=== PATIENT | female | born 1985 | race Caucasian/White ===

== ENCOUNTER 2016-08-06 03:50 | Inpatient (IN) | payer MEDICAID ==
[2016-08-06 04:29] LABS: BILIRUBIN,URINE NEGATIVE (NEGATIVE); GLUCOSE, URINE NEGATIVE (NEGATIVE); KETONES,URINE NEGATIVE (NEGATIVE); LEUKOCYTE ESTERASE,URINE TRACE (NEGATIVE); NITRITE,URINE NEGATIVE (NEGATIVE); PROTEIN,URINE 30 mg/dL (NEGATIVE); URINE SPECIFIC GRAVITY 1.002; UROBILINOGEN,URINE NEGATIVE mg/dL (<2.0)
[2016-08-06 04:31] LABS: APPEARANCE,URINE CLEAR
[2016-08-06 04:39] LABS: ABSOLUTE EOSINOPHILS # (AUTO) 0.1 10^3/uL (0.0-0.6); ABSOLUTE LYMPHOCYTES (AUTO) 2.2 10^3/uL (0.5-4.7); ABSOLUTE MONOCYTES (AUTO) 0.6 10^3/uL (0.1-1.4); ABSOLUTE NEUT (AUTO) 7.8 10^3/uL (1.7-8.2); BASOPHILS % (AUTO) 0.2 % (0-2); HEMATOCRIT 34.5 % (36.0-47.0); HGB HCT DIFFERENCE 1.5; LYMPHOCYTES % (AUTO) 20.1 % (13-45); MEAN CORPUSCULAR HEMOGLOBIN 33.4 pg (27.0-33.4); MEAN CORPUSCULAR HGB CONC 34.7 g/dL (32.0-36.0); MEAN CORPUSCULAR VOLUME 96 fl (80-97); MONOCYTES % (AUTO) 5.5 % (3-13); RED BLOOD COUNT 3.59 10^6/uL (3.72-5.28); RED CELL DISTRIBUTION WIDTH 12.6 % (11.5-14.0); SEGMENTED NEUTROPHILS % (AUTO) 73.2 % (42-78); WHITE BLOOD COUNT 10.7 10^3/uL (4.0-10.5)
[2016-08-06 04:44] LABS: URINE BARBITURATES SCREEN NEGATIVE; URINE METHADONE SCREEN NEGATIVE; URINE OPIATES LOW NEGATIVE; URINE PHENCYCLIDINE SCREEN NEGATIVE
[2016-08-06] MEDS ORDERED: PENICILLIN G POTASSIUM 5,000,000 UNIT in DEXTROSE 5%-WATER 100 ML IV ONE (05:12)
[2016-08-06] MEDS ORDERED: RINGERS SOLUTION,LACTATED 1,000 ML IV PRN ×2 (05:12→09:34)
[2016-08-06] MEDS ORDERED: PENICILLIN G-K 5 MILLION UNIT VIAL ONE (05:13)
[2016-08-06 05:41] LABS: FIBRINOGEN 402 mg/dL (209-497); PARTIAL THROMBOPLASTIN TIME 26.9 SEC (23.5-35.8); PROTHROMBIN TIME 12.6 SEC (11.4-15.4)
[2016-08-06 05:43] LABS: ADD HIVPANEL? NO; HIV (1 AND 2) ANTIBODY NEGATIVE (NEGATIVE)
[2016-08-06 05:58] LABS: CHLAM PCR NOT DETECTED (NOT DETECT)
[2016-08-06] MEDS ORDERED: CEFAZOLIN 2 GM/D5W RTU 2 GM/50 ML RTUPB IV ONE (06:12)
[2016-08-06] MEDS ORDERED: CITRIC ACID/SODIUM CITRATE ORAL SOLN 15 ML UDCUP ONE (06:12)
[2016-08-06] MEDS ORDERED: OXYTOCIN 10 UNIT/ML VIAL ONE (06:27)
[2016-08-06] MEDS ORDERED: PROPOFOL INJ 200 MG/20 ML VIAL IV ONE (06:27)
[2016-08-06] MEDS ORDERED: MIDAZOLAM 2 MG/2 ML INJ ONE (06:28)
[2016-08-06] MEDS ORDERED: FENTANYL CITRATE INJ/PF 100 MCG/2 ML AMPUL ONE ×2 (06:28→08:58)
[2016-08-06] MEDS ORDERED: EPHEDRINE SULFATE INJ 50 MG/1 ML AMPULE ONE (06:28)
[2016-08-06] MEDS ORDERED: ACETAMINOPHEN 100 ML IV ONE ×2 (07:36→10:00)
[2016-08-06] MEDS ORDERED: OXYTOCIN/NORMAL SALINE 20 UNIT/1,000 ML RTUINJ ONE ×2 (07:36→18:10)
[2016-08-06 07:46] LABS: ARTERIAL BLOOD BASE EXCESS -2.7 mmol/L; ARTERIAL BLOOD O2 SATURATION 29.5 % (94-98)
--- NOTE | 2016-08-06 08:00 | L&D Flow Sheet ---
LD Flowsheet Datetime Report Generated by CPN: 08/06/2016 08:00 Datetime: 08/06/2016 07:57 Vital Signs NBP Sys/Olinda/Mean (mmHg): 99 (QS system process) : 51 (QS system process) : 71 (QS system process) Pulse: 75 (QS system process) Datetime: 08/06/2016 07:56 Pulse: 76 (QS system process) SpO2 (%): 93 (QS system process) Datetime: 08/06/2016 07:55 Vital Signs NBP Sys/Olinda/Mean (mmHg): 95 (QS system process) : 48 (QS system process) : 69 (QS system process) Pulse: 67 (QS system process) Datetime: 08/06/2016 07:54 Pulse: 77 (QS system process) SpO2 (%): 93 (QS system process) Datetime: 08/06/2016 07:51 Pulse: 85 (QS system process) SpO2 (%): 93 (QS system process) Datetime: 08/06/2016 07:50 Vital Signs NBP Sys/Olinda/Mean (mmHg): 97 (QS system process) : 46 (QS system process) : 67 (QS system process) Pulse: 80 (QS system process) Datetime: 08/06/2016 07:49 Pulse: 88 (QS system process) SpO2 (%): 94 (QS system process) Datetime: 08/06/2016 07:46 Pulse: 96 (QS system process) SpO2 (%): 96 (QS system process) Datetime: 08/06/2016 07:41 Pulse: 80 (QS system process) SpO2 (%): 96 (QS system process) Datetime: 08/06/2016 07:36 Pulse: 82 (QS system process) SpO2 (%): 96 (QS system process) Datetime: 08/06/2016 07:32 Vital Signs NBP Sys/Olinda/Mean (mmHg): 94 (QS system process) : 53 (QS system process) : 69 (QS system process) Pulse: 80 (QS system process) Datetime: 08/06/2016 07:31 Pulse: 80 (QS system process) Pulse: 78 (QS system process) SpO2 (%): 92 (QS system process) SpO2 (%): 93 (QS system process) Datetime: 08/06/2016 07:00 Patient Care Comments: vaginal delivery baby girl (María Boyer) Datetime: 08/06/2016 06:33 Bedside Blood Glucose: 121 H (Annotations: MD Notified) (QS system process) Datetime: 08/06/2016 06:32 Patient Care Procedures: To OR for urgent csection (Soo Kossmann, RN) Datetime: 08/06/2016 06:31 Patient Care Procedures: Consent for tubal and csection obtained. (Soo Martini RN) Datetime: 08/06/2016 06:29 Bedside Blood Glucose: 121 (Soo Martini RN) Uterine Activity Monitor Mode: External; Palpation (Soo Martini RN) Quality: Mild (Soo Martini RN) Resting Tone (Palpate): Relaxed (Soo Martini RN) Contraction Comments: unable to determine contraction pattern well due to maternal movement and crying. While at bedside patient appears to be having contractions every 2-3 minutes. Abdomen soft in between (Soo Martini RN) Assessment A Monitor Mode: External US (Soo Martini, RN) FHR Baseline Rate : 145 (Soo Siddiqitimothy, RN) Variability: Minimal - Undetectable to <=5 bpm (Soo Neerutimothy, RN) Decelerations: None (Soo Neerutimothy, RN) Comments: broken tracing, RN at bedside adjusting monitor (Soo Starrann, RN) Datetime: 08/06/2016 06:26 Anesthesia Anesthesia Comments: Dr Judy at bedside to assess pt (Johnna Mccollum, RN) Datetime: 08/06/2016 06:24 Maternal Comments: TEDs and SCDs applied (Rucsandra Veda, RN) Datetime: 08/06/2016 06:23 Maternal Comments: rony prep completed (Rucsandra Veda, RN) Datetime: 08/06/2016 06:21 I/O Interventions: Holm Cath Inserted (Soo Martini, RN) Patient Care Comments: Holm catheter inserted with 10ml balloon, patent, clear yellow urine (Soo Martini, RN) Datetime: 08/06/2016 06:20 Medications Antibiotics: Ancef IV (Gm) @ (Annotations: 2gm) (María Boyer) Antiemetics/Antacids: Bicitra 15 ml PO (María Boyer) Datetime: 08/06/2016 06:19 Patient Care Comments: Rony wipes to abdomen (Soo Kossmann, RN) Datetime: 08/06/2016 06:18 Maternal Comments: rony prep started (Rucsandra Veda, RN) Datetime: 08/06/2016 06:16 Vital Signs NBP Sys/Olinda/Mean (mmHg): 136 (QS system process) : 91 (QS system process) : 110 (QS system process) Pulse: 74 (QS system process) Maternal Comments: clip completed (Rucsandra Veda, RN) Datetime: 08/06/2016 06:10 Patient Care Procedures: Csection called for breech presentation with increased bleeding. (Soo Kossmann, RN) Datetime: 08/06/2016 05:59 Respirations: 18 (María Boyer) Uterine Activity Monitor Mode: External; Palpation (María Boyer) Monitor Interventions for UA: [place] Adjusted (María Boyer) Frequency (min): 4-5 (María Boyer) Quality: Mild/Moderate (María Boyer) Duration (sec): 60-80 (María Boyer) Resting Tone (Palpate): Relaxed (María Boyer) Assessment A Monitor Mode: External US (María Boyer) Monitor Interventions for FHR: Ultrasound Adjusted (María Boyer) FHR Baseline Rate : 140 (María Boyer) FHR Baseline Changes: No Baseline Change (María Boyer) Variability: Moderate 6-25 bpm (María Boyer) Accelerations: 10X10 (María Boyer) Decelerations: None (María Boyer) Patient Position/Activity: Right Lateral (María Boyer) Datetime: 08/06/2016 05:55 Comments: Dr Levine at the bedside with portable ultrasound to confirm position (María Boyer) Patient Care Comments: Dr. Levine at bedside, ultrasound confirmed breech presentation. Discussing POC with patient and options. Patient requested for a few minutes to determine POC. (Soochristy Martini, RN) Datetime: 08/06/2016 05:43 Vital Signs NBP Sys/Olinda/Mean (mmHg): 126 (QS system process) : 95 (QS system process) : 107 (QS system process) Pulse: 78 (QS system process) Datetime: 08/06/2016 05:34 Patient Care Comments: patient up to the restroom (María Boyer) Datetime: 08/06/2016 05:31 Vaginal Exam Dilatation (cm): outer os 3cm/ inner appears to be closer to 1cm (Soo Martini, RN) Exam by: DrJames Levine (Soo Martini, RN) Vaginal Exam Comments: thick / OOP (Soo Roann, RN) Datetime: 08/06/2016 05:30 Respirations: 18 (María Boyer) Uterine Activity Monitor Mode: External; Palpation (María Boyer) Monitor Interventions for UA: [place] Adjusted (María Boyer) Frequency (min): 3-4 (María Boyer) Quality: Mild/Moderate (María Boyer) Duration (sec): 60-80 (María Boyer) Resting Tone (Palpate): Relaxed (María Boyer) Assessment A Monitor Mode: External US (María Boyer) Monitor Interventions for FHR: Ultrasound Adjusted (María Boyer) FHR Baseline Rate : 140 (María Boyer) FHR Baseline Changes: No Baseline Change (María Boyer) Variability: Moderate 6-25 bpm (María Boyer) Accelerations: 10X10 (María Boyer) Decelerations: None (María Boyer) Patient Position/Activity: Left Lateral (María Boyer) Datetime: 08/06/2016 05:29 Patient Care Comments: DrJames Levine at bedside for evaluation (Soo Martini, LILLIE) Datetime: 08/06/2016 05:23 Vaginal Exam Dilatation (cm): 3.0 (Soo Martini RN) Cervix, Consistency: Moderate (Soo Martini RN) Cervix, Position: Posterior (Soo Martini RN) Vaginal Exam Comments: outer os /thick/oop/ posterior/ funneling cervix, unable to get fully through cervix to determine if is 3 throughout, increased bleeding noted on glove (Soo Martini RN) Datetime: 08/06/2016 05:22 Medications Antibiotics: Penicillin IV (Units) @ (Annotations: [id number]) (María Boyer) Datetime: 08/06/2016 05:14 Vital Signs NBP Sys/Olinda/Mean (mmHg): 131 (QS system process) : 70 (QS system process) : 92 (QS system process) Pulse: 77 (QS system process) Datetime: 08/06/2016 05:05 Vaginal Exam Comments: increased blleding noted with cervical check (María Boyer) Datetime: 08/06/2016 05:00 Uterine Activity Monitor Mode: External; Palpation (María Boyer) Monitor Interventions for UA: [place] Adjusted (María Boyer) Frequency (min): 3-4 (María Boyer) Quality: Mild (María Obyer) Duration (sec): 60-80 (María Boyer) Resting Tone (Palpate): Relaxed (María Boyer) FHR Baseline Changes: Unable to Determine (María Boyer) Datetime: 08/06/2016 04:52 Communication Communication Comments: Dr. Levine notified of ultrasound being performed, sve change, increased bloody show. Will recheck sve post ultrasound and notify md immediately. (Soo Martini RN) Datetime: 08/06/2016 04:48 Patient Care Comments: ultrasound at the bedside (María Boyer) Datetime: 08/06/2016 04:45 Vital Signs NBP Sys/Olinda/Mean (mmHg): 109 (QS system process) : 79 (QS system process) : 91 (QS system process) Pulse: 77 (QS system process) Datetime: 08/06/2016 04:36 Patient Care Comments: patient up to the restroom (María Boyer) Datetime: 08/06/2016 04:35 Respirations: 18 (María Boyer) Uterine Activity Monitor Mode: External; Palpation (María Boyer) Monitor Interventions for UA: [place] Adjusted (María Boyer) Frequency (min): 4-6 (María Boyer) Quality: Mild (María Boyer) Duration (sec): 60-90 (María Boyer) Resting Tone (Palpate): Relaxed (María Boyer) Assessment A Monitor Mode: External US (María Boyer) Monitor Interventions for FHR: Ultrasound Adjusted (María Boyer) FHR Baseline Rate : 140 (María Boyer) Variability: Moderate 6-25 bpm (María Boyer) Accelerations: 15X15 (María Boyer) Decelerations: None (María Boyer) Patient Position/Activity: Left Lateral (María Boyer) Datetime: 08/06/2016 04:19 Pain Pain Scale: 1 (María Boyer) Pain Presence: Intermittent (María Boyer) Pain Type: Cramping (María Boyer) Pain Location: Abdomen (María Boyer) Pain Goal: 0 (María Boyer) Pain Coping: Talking Through Contractions (María Boyer) Pain Assessment Comments: (María Boyer) Vaginal Bleeding: Small (María Boyer) Maternal Assessment Level of Consciousness: Fully Conscious (María Boyer) DTR's/Clonus: DTRs 2+; No Clonus (María Boyer) Headache: Denies (María Boyer) Breath Sounds, Left: Clear and Equal (María Boyer) Breath Sounds, Right: Clear and Equal (María Boyer) Nausea/Vomiting: Denies (María Boyer) RUQ Epigastric Pain: Denies (María Boyer) Patient Position/Activity: Left Lateral (María Boyer) Teaching Instructional Method: Verbal (María Boyer) Plan of Care: Plan of Care Discussed (María Boyer) Unit Routine: [place] to Room; Call [place]; Bed; Monitoring (María Boyer) Datetime: 08/06/2016 04:13 Vital Signs NBP Sys/Olinda/Mean (mmHg): 112 (QS system process) : 76 (QS system process) : 86 (QS system process) Pulse: 90 (QS system process) Datetime: 08/06/2016 04:04 Vaginal Exam Dilatation (cm): 3.0 (María Boyer) Effacement (%): 50 (María Boyer) Station: -2 (María Boyer) Exam by: Gurvinder Boyer RN (María Boyer) Vaginal Exam Comments: obvious bleeding noted on pad and glove after cervical check. (María Boyer) Datetime: 08/06/2016 03:57 Patient Care Comments: patient to the unit for labor check (María Boyer)
[2016-08-06] MEDS ORDERED: DIPHENHYDRAMINE HCL 50 MG/ML VIAL ONE (08:51)
[2016-08-06] MEDS ORDERED: PENICILLIN G POTASSIUM 2,500,000 UNIT in DEXTROSE 5%-WATER 50 ML IV SCH (09:14)
--- NOTE | 2016-08-06 09:18 | Admission Physical ---
Datetime Report Generated by CPN: 08/06/2016 09:18 CURRENT ADMISSION Hx Assessment: The History has been Reviewed and is Current Chief Complaint: Vaginal Bleeding Indication for Induction: Not Applicable Admit Plan: Admit to Unit; Initiate Labor Protocol ALLERGIES Medication Allergies: No Medication Allergies: No Known Allergies (08/06/2016) Medication Allergies: No Known Allergies (06/20/2015) Latex: No Latex Allergies Food Allergies: none Environmental Allergies: none OBSTETRICAL HISTORY EDC: 08/06/2016 00:00 : 8 Para: 5 SAB: 2 Livin Gestational Diabetes: No Rh Sensitization: No Incompetent Cervix: No GABY: No Infertility: No ART Treatment: No Uterine Anomaly: No IUGR: No Hx Previous C/S: No Macrosomia: No Hx Loss/Stillborn: No PIH: No Hx : No Placenta Previa/Abruption: No Depression/PP Depression: No PTL/PROM: No Post Hemorrhage: No Current Procedures: Ultrasound; NST Obstetrical History Comments: [id number] G2-40.5weeks [id number] G5-2013 SAB 8weeks G6-2013 SAB 8weeks G-36 weeks G8-current SEE RECORDS Alcohol: No Marijuana : No Cocaine: No Other Illicit Drugs: No Cigarettes: Current Everyday Smoker. [id number] Cigarette Frequency: 5 - 10 per day MEDICAL HISTORY Diabetes: No Blood Transfusion: No Pulmonary Disease (Asthma, TB): No Breast Disease: No Hypertension: No Legal Research Analyst Surgery: No Heart Disease: No Hosp/Surgery: No Autoimmune Disorder: No Anesthetic Complications: No Kidney Disease: No Abnormal Pap Smear: No Neuro/Epilepsy: No Psychiatric Disorders: No Other Medical Diseases: No Hepatitis/Liver Disease: No Significant Family History: No Varicosities/Phlebitis: No Trauma/Violence : No Thyroid Dysfunction: No INFECTIOUS HISTORY Gonorrhea: No Genital Herpes: No Chlamydia: No Tuberculosis: No Syphilis: No Hepatitis: No HIV/AIDS Exposure: No Rash or Viral Illness: No HPV: No PHYSICAL EXAM General: Normal HEENT: Deferred Neurologic: Deferred Thyroid: Deferred Heart: Normal Lungs: Normal Breast: Deferred Back: Deferred Abdomen: Normal Genitourinary Exam: Normal Extremities: Normal DTRs: Normal Pelvic Type: Adequate Vital Signs: Reviewed; Within Normal Limits VAGINAL EXAM Dilatation: 3 Effacement: 60 Station: -3 Contraction Comments: irreg MEMBRANES Pooling: Negative FETUS A EGA: 40.0 FHR- Baseline: 130 Variability: Moderate 6-25bpm Accelerations: 10X10 Decelerations: None FHR Category: Category II Admit Comment: TErm No care presented with spotting and bleeding increased slightly after that and intially thought to be changing cervix. cervix is actually not dilating- int os 2/long/no parts palpable. external os 3cm. minimally bleeing now and uterus soft, ctx mild. labs pending. will evaluate sono and labs and continue to observe PLANS FOR LABOR AND DELIVERY Labor and Delivery: None Pain Management: Natural; Epidural Feeding Preference: Formula Circumcision: No INFORMED CONSENT Signature: with User ID: [email or web address]
[2016-08-06] MEDS ORDERED: PENICILLIN G-K 5 MILLION UNIT VIAL IV SCH (09:30)
--- NOTE | 2016-08-06 09:32 | Delivery Summary ---
Del Sum A-C Datetime Report Generated by CPN: 08/06/2016 09:32 ADMISSION DATA Chief Complaint: Vaginal Bleeding Indication for Induction: Not Applicable Admission Impression: Term, Intrauterine ; No Active Labor; Intact Membranes; Vaginal Bleeding; Observation/Evaluation Admit Provider Comments: TErm No care presented with spotting and bleeding increased slightly after that and intially thought to be changing cervix. cervix is actually not dilating- int os 2/long/no parts palpable. external os 3cm. minimally bleeing now and uterus soft, ctx mild. labs pending. will evaluate sono and labs and continue to observe DELIVERY PERSONNEL Delivery Doctor:: Alisson Levine MD Anesthesiologist:: Brandt Kim MD Labor and Delivery Nurse:: María Boyer RNpneumatic tube repairer Nurse:: Radha Samuels RN Neonatal Nurse Practitioner:: Odette Mayes RESIDENTIAL CASE MANAGER MATERNAL INFORMATION Delivery Anesthesia: Spinal Medications After Delivery: Pitocin Bolus-Please Comment; Pitocin Drip 20 Units/1000ml NSS Estimated Blood Loss (ml): 600 Maternal Complications: Abruptio Placenta; Other Other Maternal Complications: no PNC Provider Comments: PrimaryLTCS/BTL for abruption/breech. live female infant ap . Placenta with approx 25% abruption. Infant to NICU for observation, Mother stable to recovery LABOR SUMMARY EDC: 08/06/2016 00:00 No. Babies in Womb: 1 Attempted: No LABOR INFORMATION Reason for Induction: Not Applicable Oxytocin: N/A Group B Beta Strep: unknown Antibiotics # of Doses: 2 Name of Antibiotic Given: PCN, Ancef Steroids Given: None Reason Steroids Not Administered: Not Applicable MEMBRANES Membranes Rupture Method: Artificial Amniotic Fluid Color: Clear Amniotic Fluid Amount: Copious Amniotic Fluid Odor: Normal STAGES OF LABOR Stage 3 hr: 0 Stage 3 min: 1 VAGINAL DELIVERY Episiotomy: None Laceration Extension: N/A Laceration Type: None Laceration Repair: Not Applicable Sponge Count Correct: N/A Sharps Count Correct: N/A CSECTION DELIVERY Primary Indication: Breech Presentation Secondary Indication: Abruptio Placenta CSection Urgency: Non-Scheduled CSection Incidence: Primary Labor: No Labor Elective: Nonelective CSection Incision: Lower Uterine Transverse Uterine Closure: Double-layer closure BABY A INFORMATION Delivery Date/Time: 08/06/2016 07:00 Method of Delivery: Born in Route : No : N/A Forceps: N/A Vacuum Extraction: N/A Shoulder Dystocia : Yes PRESENTATION/POSITION BABY A Presentation: Breech PLACENTA INFORMATION BABY A Placenta Delivery Time : 08/06/2016 07:01 Placenta Method of Delivery: Spontaneous Placenta Status: Delivered SCORES BABY A Heart Rate 1 min: Slow, Below 100 bpm Resp Effort 1 min: Slow, Irregular Reflex Irritability 1 min: No Response Muscle Tone 1 min: Flaccid Color 1 min: Blue/Pale Resuscitation Effort 1 min: Tactile Stimulation; Oxygen; PPV/NCPAP SCORE 1 MIN: 2 Heart Rate 5 min: >100 bpm Resp Effort 5 min: Good Cry Reflex Irritability 5 min: No Response Muscle Tone 5 min: Flaccid Color 5 min: Body [place], Extremities Blue Resuscitation Effort 5 min: Tactile Stimulation; Oxygen; PPV/NCPAP SCORE 5 MIN: 5 Heart Rate 10 min: >100 bpm Resp Effort 10 min: Good Cry Reflex Irritability 10 min: [place] Muscle Tone 10 min: Some Flexion of Extremities Color 10 min: Body [place], Extremities Blue Resuscitation Effort 10 min: Tactile Stimulation; Oxygen; PPV/NCPAP SCORE 10 MIN: 7 INFORMATION BABY A Gestational Age at Delivery: 40.0 Gestational Status: Full Term- 39- 40.6 Weeks Outcome : Liveborn Condition : Stable Sex: Female WEIGHT/LENGTH BABY A Infant Birthweight (gm): 3330 Weight (lb): 7 Infant Weight (oz): 5 Length (in): 20.50 Length (cm): 52.07 CORD INFORMATION BABY A No. Cord Vessels: 3 Nuchal Cord : N/A Cord Blood Taken: Yes-For Eval (Mom's Blood Type - or O+) ASSESSMENT BABY A Skin to Skin: No BABY B INFORMATION : N/A SIGNATURES Signature: with User ID: [email or web address]
[2016-08-06] MEDS ORDERED: SIMETHICONE 80 MG TAB.CHEW PO PRN (09:34)
[2016-08-06] MEDS ORDERED: ACETAMINOPHEN 325 MG TABLET PO PRN (09:34)
[2016-08-06] MEDS ORDERED: MEASLES,MUMPS&RUBELLA VACC/PF 0.5 ML VIAL SUBCUT PRN (09:34)
[2016-08-06] MEDS ORDERED: DIPH/PERTUSS(ACELL)/TETANUS VAC/PF 0.5 ML SYR (>=10YO) IM PRN (09:34)
[2016-08-06] MEDS ORDERED: OXYTOCIN/NORMAL SALINE 1,000 ML IV PRN (09:34)
[2016-08-06] MEDS ORDERED: OXYCODONE-ACETAMINOPHEN 5-325 MG TABLET PO PRN ×2 (09:34)
[2016-08-06] MEDS ORDERED: PROMETHAZINE HCL INJ 25 MG/1 ML VIAL IV PRN (09:34)
[2016-08-06] MEDS: DOCUSATE SODIUM 100 MG CAPSULE PO SCH ×2 (10:19→17:50)
[2016-08-06] MEDS: HYDROMORPHONE HCL INJ/PF 2 MG/ML AMPULE IV PRN ×3 (10:20→18:34)
[2016-08-06] MEDS: PRENATAL VITAMIN W-O CA NO5/FE FUMARATE/FA CAPSULE PO SCH (10:21)
[2016-08-06] MEDS ORDERED: PHENYLEPHRINE HCL INJ/PF 10 MG/1 ML SDV ONE (13:33)
[2016-08-06] MEDS ORDERED: ONDANSETRON HCL INJ/PF 4 MG/2 ML SDV ONE (13:33)
[2016-08-06] MEDS: KETOROLAC TROMETHAMINE INJ/PF 30 MG/1 ML SDV IV SCH ×2 (14:33→21:15)
[2016-08-06] MEDS ORDERED: MISOPROSTOL 0.2 MG TABLET ONE (18:11)
[2016-08-06] MEDS ORDERED: MISOPROSTOL 0.1 MG TABLET PR ONE (18:30)
--- NOTE | 2016-08-06 19:00 | L&D Flow Sheet ---
LD Flowsheet Datetime Report Generated by CPN: 08/06/2016 19:00 Datetime: 08/06/2016 09:11 Pulse: 62 (QS system process) SpO2 (%): 97 (QS system process) Datetime: 08/06/2016 09:06 Pulse: 78 (QS system process) SpO2 (%): 98 (QS system process) Datetime: 08/06/2016 09:03 Pain Scale: 2 (Nancie Mcintosh RN) Pain Presence: Constant (Nancie Mcintosh RN) Pain Type: Dull (Nancie Mcintosh RN) Pain Location: Abdomen (Nancie Mcintosh, RN) Pain Goal: 1 (Nancie Mcintosh RN) Pain Relief Measures: Pain Medication Given (Nancie Mcintosh RN) Datetime: 08/06/2016 09:01 NBP Sys/Olinda/Mean (mmHg): 114 (QS system process) : 74 (QS system process) : 90 (QS system process) Pulse: 62 (QS system process) Pulse: 60 (QS system process) SpO2 (%): 96 (QS system process) Datetime: 08/06/2016 08:56 Pulse: 60 (QS system process) SpO2 (%): 98 (QS system process) Datetime: 08/06/2016 08:51 Pulse: 66 (QS system process) SpO2 (%): 96 (QS system process) Datetime: 08/06/2016 08:46 Pulse: 66 (QS system process) SpO2 (%): 98 (QS system process) Datetime: 08/06/2016 08:45 NBP Sys/[place]/Mean (mmHg): 113 (QS system process) : 64 (QS system process) : 83 (QS system process) Pulse: 76 (QS system process) Datetime: 08/06/2016 08:41 Pulse: 72 (QS system process) SpO2 (%): 98 (QS system process) Datetime: 08/06/2016 08:36 Pulse: 68 (QS system process) SpO2 (%): 95 (QS system process) Datetime: 08/06/2016 08:31 Pulse: 83 (QS system process) SpO2 (%): 98 (QS system process) Datetime: 08/06/2016 08:30 NBP Sys/[place]/Mean (mmHg): 106 (QS system process) : 64 (QS system process) : 79 (QS system process) Pulse: 77 (QS system process) Datetime: 08/06/2016 08:26 Pulse: 70 (QS system process) SpO2 (%): 95 (QS system process) Datetime: 08/06/2016 08:21 Pulse: 66 (QS system process) SpO2 (%): 97 (QS system process) Datetime: 08/06/2016 08:16 Pulse: 66 (QS system process) SpO2 (%): 96 (QS system process) Datetime: 08/06/2016 08:15 NBP Sys/[place]/Mean (mmHg): 101 (QS system process) : 59 (QS system process) : 76 (QS system process) Pulse: 68 (QS system process) Datetime: 08/06/2016 08:11 Pulse: 64 (QS system process) SpO2 (%): 96 (QS system process) Datetime: 08/06/2016 08:06 Pulse: 67 (QS system process) SpO2 (%): 96 (QS system process) Datetime: 08/06/2016 08:01 Pulse: 75 (QS system process) SpO2 (%): 93 (QS system process) Datetime: 08/06/2016 08:00 NBP Sys/[place]/Mean (mmHg): 96 (QS system process) : 51 (QS system process) : 69 (QS system process) Pulse: 65 (QS system process) Datetime: 08/06/2016 07:57 NBP Sys/[place]/Mean (mmHg): 99 (QS system process) : 51 (QS system process) : 71 (QS system process) Pulse: 75 (QS system process) Datetime: 08/06/2016 07:56 Pulse: 76 (QS system process) SpO2 (%): 93 (QS system process) Datetime: 08/06/2016 07:55 NBP Sys/[place]/Mean (mmHg): 95 (QS system process) : 48 (QS system process) : 69 (QS system process) Pulse: 67 (QS system process) Datetime: 08/06/2016 07:54 Pulse: 77 (QS system process) SpO2 (%): 93 (QS system process) Datetime: 08/06/2016 07:51 Pulse: 85 (QS system process) SpO2 (%): 93 (QS system process) Datetime: 08/06/2016 07:50 NBP Sys/[place]/Mean (mmHg): 97 (QS system process) : 46 (QS system process) : 67 (QS system process) Pulse: 80 (QS system process) Datetime: 08/06/2016 07:49 Pulse: 88 (QS system process) SpO2 (%): 94 (QS system process) Datetime: 08/06/2016 07:46 Pulse: 96 (QS system process) SpO2 (%): 96 (QS system process) Datetime: 08/06/2016 07:45 Respirations: 16 (Nancie Mcintosh, RN) Temperature Route: Oral (Nancie Mcintosh, RN) Pain Scale: 0 (Nancieeve Mcintosh, RN) Pain Presence: None/Denies (Nancie Mcintosh, RN) Pain Type: N/A (Nancie Mcintosh, RN) Pain Goal: 1 (Nancie Mcintosh, RN) Pain Relief Measures: Comfort Measures (Nancie Mcintosh, RN) Datetime: 08/06/2016 07:41 Pulse: 80 (QS system process) SpO2 (%): 96 (QS system process) Datetime: 08/06/2016 07:36 Pulse: 82 (QS system process) SpO2 (%): 96 (QS system process) Datetime: 08/06/2016 07:32 NBP Sys/[place]/Mean (mmHg): 94 (QS system process) : 53 (QS system process) : 69 (QS system process) Pulse: 80 (QS system process) Datetime: 08/06/2016 07:31 Pulse: 80 (QS system process) Pulse: 78 (QS system process) SpO2 (%): 92 (QS system process) SpO2 (%): 93 (QS system process) Datetime: 08/06/2016 07:30 Stage of : Recovery (Nancie Mcintosh RN) Respirations: 14 (Nancie Mcintosh RN) Temperature (F): 97.7 (Nancie Mcintosh RN) Temperature (C): 36.5 (QS system process) Temperature Route: Oral (Nancie Mcintosh RN) Pain Scale: 0 (Nancie Mcintosh RN) Pain Presence: None/Denies (Nancie Mcintosh RN) Pain Type: N/A (Nancie Mcintosh RN) Pain Goal: 1 (Nancie Mcintosh RN) Pain Relief Measures: Comfort Measures (Nancie Mcintosh RN) Datetime: 08/06/2016 07:00 Patient Care Comments: vaginal delivery baby girl (María Boyer)
[2016-08-06 19:25] LABS: ABSOLUTE EOSINOPHILS # (AUTO) 0.1 10^3/uL (0.0-0.6); ABSOLUTE LYMPHOCYTES (AUTO) 1.7 10^3/uL (0.5-4.7); ABSOLUTE NEUT (AUTO) 11.5 10^3/uL (1.7-8.2); BASOPHILS % (AUTO) 0.2 % (0-2); EOSINOPHILS % (AUTO) 0.8 % (0-6); HEMATOCRIT 29.9 % (36.0-47.0); HEMOGLOBIN 10.5 g/dL (12.0-15.5); HGB HCT DIFFERENCE 1.6; MEAN CORPUSCULAR HEMOGLOBIN 33.7 pg (27.0-33.4); MEAN CORPUSCULAR HGB CONC 35.2 g/dL (32.0-36.0); MEAN CORPUSCULAR VOLUME 96 fl (80-97); MONOCYTES % (AUTO) 6.7 % (3-13); RED BLOOD COUNT 3.12 10^6/uL (3.72-5.28); RED CELL DISTRIBUTION WIDTH 12.5 % (11.5-14.0); SEGMENTED NEUTROPHILS % (AUTO) 80.3 % (42-78); WHITE BLOOD COUNT 14.4 10^3/uL (4.0-10.5)
[2016-08-06 19:34] LABS: PROTHROMBIN TIME 13.1 SEC (11.4-15.4)
[2016-08-06 19:35] LABS: PARTIAL THROMBOPLASTIN TIME 26.4 SEC (23.5-35.8)
[2016-08-06 19:41] LABS: ALANINE AMINOTRANSFERASE 50 U/L (9-52); ALBUMIN 2.9 g/dL (3.5-5.0); ALKALINE PHOSPHATASE 76 U/L (38-126); ANION GAP 8 (5-19); ASPARTATE AMINO TRANSFERASE 35 U/L (14-36); BILIRUBIN,TOTAL 0.4 mg/dL (0.2-1.3); BLOOD UREA NITROGEN 5 mg/dL (7-20); CALCIUM 8.5 mg/dL (8.4-10.2); CARBON DIOXIDE 23 mmol/L (22-30); CHLORIDE 102 mmol/L (98-107); CREATININE RESULT 0.51 mg/dL (0.52-1.25); GLUCOSE 90 mg/dL (75-110); LDH 755 U/L (313-618); SODIUM 132.7 mmol/L (137-145); TOTAL PROTEIN 5.4 g/dL (6.3-8.2); URIC ACID 4.6 mg/dL (2.5-6.2)
[2016-08-07] MEDS: KETOROLAC TROMETHAMINE INJ/PF 30 MG/1 ML SDV IV SCH (05:12)
--- NOTE | 2016-08-07 06:01 | L&D Current Admission ---
Current Admit Datetime Report Generated by CPN: 08/07/2016 06:00 ADMISSION INFORMATION Current Admit Date/Time: 08/06/2016 05:05 (08/06/2016 04:19:María Boyer) Reason for Admission: Onset of Labor (08/06/2016 04:19:María Boyer) Chief Complaint: Vaginal Bleeding (08/06/2016 04:19:María Boyer) EGA per Dates: 40.0 (08/06/2016 04:19:QS system process) Method of Arrival: Wheelchair (08/06/2016 04:19:María Boyer) Admitted From: Home (08/06/2016 04:19:María Boyer) Records Available: Yes (08/06/2016 04:19:María Boyer) General Admission Information: Reviewed (08/06/2016 04:19:María Boyer) General Admission Reviewed By: Gurvinder Boyer Rn (08/06/2016 04:19:María Boyer) BELONGINGS/ADVANCED DIRECTIVES Other Belongings: see consent sheet (08/06/2016 04:19:María Boyer) LEARNING ASSESSMENT Knowledge Level: Understands L_D Process (08/06/2016 04:19:María Boyer) Barriers to Learning: None (08/06/2016 04:19:María Boyer) Learning Readiness: Motivated (08/06/2016 04:19:María Boyer) Learns Best By: 1 to 1 Instruction (08/06/2016 04:19:María Boyer) Learning Needs: Labor and Delivery Process; Pain Management; Symptoms to Report; Treatment Plan; Medication (08/06/2016 04:19:María Boyer) DOMESTIC VIOLANCE SCREENING Dom Viol Threatened/Hurt: No (08/06/2016 04:19:María Boyer) Hx of Abuse/Neglect past 2yrs: No (08/06/2016 04:19:María Boyer) Feel Unsafe Going Home: No (08/06/2016 04:19:María Boyer) Addt'l Observ Indicating Abuse: No (08/06/2016 04:19:María Boyer) Reason Unable to Complete Screen: N/A, Screen Completed (08/06/2016 04:19:María Boyer) Considered Personal Harm/Suicide: No (08/06/2016 04:19:María Boyer) NUTRITIONAL/FUNCTIONAL SCREENING Problem with Appetite >5 Days: No (08/06/2016 04:19:María Boyer) Chew/Swallow Difficulties: No (08/06/2016 04:19:María Boyer) Inappropriate Wt Gain/Loss: No (08/06/2016 04:19:María Boyer) Presence Skin Breakdown/Ulcer: No (08/06/2016 04:19:María Boyer) Special Diet: No (08/06/2016 04:19:María Boyer) Pt Requests Wastewater Project Manager Visit: No (08/06/2016 04:19:María Boyer) Hx of Any of the Following?: N/A (08/06/2016 04:19:María Boyer) New Diagnosis of: N/A (08/06/2016 04:19:María Boyer) Requires Assist w/Ambulation: No (08/06/2016 04:19:María Boyer) Uses Assist Device to Ambulate: No (08/06/2016 04:19:María Boyer) Pt Requires Help w/ADL's: No (08/06/2016 04:19:María Boyer)
--- NOTE | 2016-08-07 06:01 | L&D General Admission ---
General Admit Datetime Report Generated by CPN: 08/07/2016 06:00 INFORMATION Patient Age: 31 (08/06/2016 03:50:QS system process) EDC: 08/06/2016 00:00 (08/06/2016 04:01:María Boyer) : 8 (08/06/2016 04:01:María Boyer) Para: 5 (08/06/2016 04:01:María Boyer) Spontaneous Abortions: 2 (08/06/2016 04:01:María Boyer) Livin (08/06/2016 04:01:María Boyer) Baby, Number in Womb: 1 (08/06/2016 04:01:María Boyer) CARE Primary Client Service Manager: [facility] (08/06/2016 04:01:María Boyer) Height (in): 67 (08/06/2016 14:23:QS system process) ALLERGIES Medication Allergy: No (08/06/2016 04:01:María Boyer) Medication Allergies: No Known Allergies (08/06/2016) (08/06/2016 05:18:QS system process) Latex Allergy: No Latex Allergies (08/06/2016 04:01:María Boyer) Food Allergies: none (08/06/2016 04:01:María Boyer) Environmental Allergies: none (08/06/2016 04:01:María Boyer) COMMUNICATION Primary Language: Latvian (08/06/2016 04:01:María Boyer) Medical Tx Preferred Language: Latvian (08/06/2016 04:01:María Boyer) DEMOGRAPHICS Address: [address] [place] [address] [address] [place] [address] (08/06/2016 03:50:QS system process) Zipcode: [address] (08/06/2016 03:50:QS system process) Home (08/06/2016 03:50:QS system process) SSN: [id number] (08/06/2016 03:50:QS system process) Next of Kin Name: KELVIN MORENO (08/06/2016 03:50:QS system process) Next of Kin (08/06/2016 03:50:QS system process) Next of Kin Relationship: SPO (08/06/2016 03:50:QS system process) Date of : 1985 (08/06/2016 03:50:QS system process) Marital Status: (08/06/2016 03:50:QS system process) Sex: Female (08/06/2016 03:50:QS system process) Race: (08/06/2016 03:50:QS system process) Ethnicity: Non- or (08/06/2016 03:50:QS system process) Synagogue: None (08/06/2016 03:50:QS system process) DRUG AND ALCOHOL USE Alcohol: No (08/06/2016 04:01:María Boyer) Cigarettes: Current Everyday Smoker. [id number] (08/06/2016 04:01:María Boyer) Average Cigarettes Smoked: 5 - 10 per day (08/06/2016 04:01:María Boyer) Marijuana: No (08/06/2016 04:01:María Boyer) Cocaine: No (08/06/2016 04:01:Maraí Boyer) Other Illicit Drugs: No (08/06/2016 04:01:María Boyer) VACCINE HISTORY Influenza Vaccine: No (08/06/2016 04:01:María Boyer) Pneumococcal Vaccine: No (08/06/2016 04:01:María Boyer) Tetanus Vaccine: No (08/06/2016 04:01:María Boyer) Tdap Vaccine: No (08/06/2016 04:01:María Boyer) Hepatitis B Vaccine: No (08/06/2016 04:01:María Boyer) Grant Officer: [facility] (08/06/2016 04:01:María Boyer) Feeding Preference: Formula (08/06/2016 04:01:María Boyer) Circumcision: No (08/06/2016 04:01:María Boyer) Tubal Ligation: No (08/06/2016 04:01:María Boyer) Tubal Authorization Signed: N/A (08/06/2016 04:01:María Boyer) Consent: N/A (08/06/2016 04:01:María Boyer) Consent Signed: N/A (08/06/2016 04:01:María Boyer) Pain Management Plans: Natural; Epidural (08/06/2016 04:01:María Boyer) Plans for Labor and Delivery: None (08/06/2016 04:01:María Boyer) Support Person: Kelvin (08/06/2016 04:01:María Boyer) Support Person Relationship: (08/06/2016 04:01:María Boyer) LIVING SITUATION/DISCHARGE PLAN Living Arrangements: House (08/06/2016 04:01:María Boyer) Adequate Access to:: Electric; Heat; Refrigeration; Plumbing/Running water; Phone; Transportation (08/06/2016 04:01:María Boyer) WIC Program: Yes (08/06/2016 04:01:María Boyer) Discharge Potato Peeler Person: Kelvin- (08/06/2016 04:01:María Boyer) Person to Help after Discharge: Kelvin- (08/06/2016 04:01:María Boyer) Currently Using Commun Resources: Yes (08/06/2016 04:01:María Boyer) Specify Current Resource Used: medicaid (08/06/2016 04:01:María Boyer) LABS Blood Type: O Positive (08/06/2016 04:01:Soo Martini RN) Hemoglobin: 10.5 L (08/06/2016 19:20:QS system process) Hematocrit: 29.9 L (08/06/2016 19:20:QS system process) MCV: 96 (08/06/2016 19:20:QS system process) Group Beta Strep: unknown (08/06/2016 04:01:Soo Martini RN) Gonorrhea: Negative (08/06/2016 04:01:Soo Martini RN) Chlamydia: Negative (08/06/2016 04:01:Soo Martini RN) HIV Results: NEGATIVE (08/06/2016 04:27:QS system process) Rubella: POSITIVE NEGATIVE IF LESS THAN OR EQUAL TO 9.99 IU/mL POSITIVE IF GREATER THAN OR EQUAL TO 10.0 IU/mL (08/06/2016 04:27:QS system process) Rubella Titer: 28.10 (08/06/2016 04:27:QS system process) OB/PREVIOUS HISTORY Previous Procedures: Ultrasound; NST (08/06/2016 04:01:María Boyer) Current Procedures: Ultrasound; NST (08/06/2016 04:01:María Boyer) History of Previous : No (08/06/2016 04:01:María Boyer) History of Gestational Diabetes: No (08/06/2016 04:01:María Boyer) History of PIH: No (08/06/2016 04:01:María Boyer) History of Incompetent Cervix: No (08/06/2016 04:01:María Boyer) History of Placenta Previa/Abrup: No (08/06/2016 04:01:María Boyer) History of Macrosomia: No (08/06/2016 04:01:María Boyer) History of IUGR: No (08/06/2016 04:01:María Boyer) History of Hemorrhage: No (08/06/2016 04:01:María Boyer) History of Loss/Stillborn: No (08/06/2016 04:01:María Boyer) History of : No (08/06/2016 04:01:María Boyer) History of D (Rh) Sensitization: No (08/06/2016 04:01:María Boyer) History Recurrent Loss/Stillborn: No (08/06/2016 04:01:María Boyer) History Depression/PP Depression: No (08/06/2016 04:01:María Boyer) History of Uterine Anomaly/GABY: No (08/06/2016 04:01:María Boyer) History of Infertility: No (08/06/2016 04:01:María Boyer) History of ART Treatment: No (08/06/2016 04:01:María Boyer) History of GABY: No (08/06/2016 04:01:María Boyer) Comments Obstetrical History: [id number] G2-2010-40.5weeks [id number] G5-2014 SAB 8weeks G6-2014 SAB 8weeks G7-2016-36 weeks G8-current (08/06/2016 04:01:María Boyer) MEDICAL HISTORY Med Hx Diabetes: No (08/06/2016 04:01:María Boyer) Med Hx Hypertension: No (08/06/2016 04:01:María Boyer) Med Hx Heart Disease: No (08/06/2016 04:01:María Boyer) Med Hx Autoimmune Disorder: No (08/06/2016 04:01:María Boyer) Med Hx Kidney Disease/UTI: No (08/06/2016 04:01:María Boyer) Med Hx Neurologic/Epilepsy: No (08/06/2016 04:01:María Boyer) Med Hx Psychiatric Disorders: No (08/06/2016 04:01:María Boyer) Med Hx Hepatitis/Liver Disease: No (08/06/2016 04:01:Maíra Boyer) Med Hx Varicosities/Phlebitis: No (08/06/2016 04:01:María Boyer) Med Hx Thyroid Dysfunction: No (08/06/2016 04:01:María Boyer) Med Hx Trauma/Violence: No (08/06/2016 04:01:María Boyer) Med Hx Blood Transfusion: No (08/06/2016 04:01:María Boyer) Med Hx Pulmonary (Asthma,TB): No (08/06/2016 04:01:María Boyer) Med Hx Breast: No (08/06/2016 04:01:María Boyer) Med Hx BILINGUAL BRANCH MANAGER Surgery: No (08/06/2016 04:01:María Boyer) Med Hx Hospitalization/Surgery: No (08/06/2016 04:01:María Boyer) Med Hx Anesthetic Complications: No (08/06/2016 04:01:María Boyer) Med Hx Abnormal Pap Smear: No (08/06/2016 04:01:María Boyer) Other Medical Diseases: No (08/06/2016 04:01:María Boyer) Med Hx Significant Family Hx: No (08/06/2016 04:01:María Boyer) INFECTIOUS HISTORY Inf Hx Gonorrhea: No (08/06/2016 04:01:María Boyer) Inf Hx Chlamydia: No (08/06/2016 04:01:María Boyer) Inf Hx Syphilis: No (08/06/2016 04:01:María Boyer) Inf Hx HIV/AIDS: No (08/06/2016 04:01:María Boyer) Inf Hx Human Papilloma Virus: No (08/06/2016 04:01:María Boyer) Inf Hx Pt/Partner Genital Herpes: No (08/06/2016 04:01:María Boyer) Inf Hx Tuberculosis/Exposure: No (08/06/2016 04:01:María Boyer) Inf Hx Hepatitis B,C: No (08/06/2016 04:01:María Boyer) Inf Hx Rash or Viral Illness: No (08/06/2016 04:01:María Boyer) GENETIC HISTORY Gen Hx Age >=35 at DARNELL: No (08/06/2016 04:01:María Boyer) Gen Hx Thalassemia: No (08/06/2016 04:01:María Boyer) Gen Hx Congenital Heart Defect: No (08/06/2016 04:01:María Boyer) Gen Hx Neural Tube Defect: No (08/06/2016 04:01:María Boyer) Gen Hx Down's Syndrome: No (08/06/2016 04:01:María Boyer) Gen Hx Hieu-Sachs: No (08/06/2016 04:01:María Boyer) Gen Hx Joselin: No (08/06/2016 04:01:María Boyer) Gen Hx Familial Dysautonomia: No (08/06/2016 04:01:María Boyer) Gen Hx Sickle Cell Disease/Trait: No (08/06/2016 04:01:María Boyer) Gen Hx Hemophilia/Blood Disorder: No (08/06/2016 04:01:María Boyer) Gen Hx Muscular Dystrophy: No (08/06/2016 04:01:María Boyer) Gen Hx Cystic Fibrosis: No (08/06/2016 04:01:María Boyer) Gen Hx Huntingtons Chorea: No (08/06/2016 04:01:María Boyer) Gen Hx Mental Retardation/Autism: No (08/06/2016 04:01:María Boyer) Gen Hx Tested for Fragile X: No (08/06/2016 04:01:María Boyer) Gen Hx Other Inher/Chromosomal: No (08/06/2016 04:01:María Boyer) Gen Hx Maternal Metabolic DO: No (08/06/2016 04:01:María Boyer) Gen Hx Pt Father or FOB Defect: No (08/06/2016 04:01:María Boyer) Gen Hx Other Genetic History: No (08/06/2016 04:01:María Boyer) Gen Hx Drugs/Meds since LMP: No (08/06/2016 04:01:María Boyer)
--- NOTE | 2016-08-07 06:15 | L&D Care Plan ---
LD CARE PLANS Datetime Report Generated by CPN: 08/07/2016 06:15 Datetime: 08/06/2016 04:58 Pain State: Risk For (Chela Liriano RN) Related To: Labor and Delivery Process; Surgical Procedure (Chela Liriano RN) Goal(s): Patients Pain will be Assessed and Managed; Patient will Verbalize Adequate Relief of Pain or the Ability to [place] with Current Pain (Chela Liriano RN) Interventions: Assess Pain Severity on Scale of 0 (None) to 5 (Severe); Assess Type, Location and Intensity of Pain Each Time Client Reports Discomfort and Notify Provider if Unusal Pain Develops; Encourage Proper Breathing and Relaxation Techniques; Offer Alternatives Such as Repositioning, Calm Environment, Massages, Diversional Activities, Ice Pack, Splinting, and Ambulation; Administer Analgesics as Ordered; Assist with Epidural Placement as Appropriate; Evaluate Therapeutic Effectiveness of Medication and Treatments (Chela Liriano RN) Outcome: Patient will Report Absence or Relief of Pain Consistent with Established Pain Goal (Chela Liriano RN) Status: Ongoing (Chela Liriano RN) Outcome: Patient will have a Decrease in Signs and Symptoms of Discomfort (Chela Liriano RN) Status: Ongoing (Chela Liriano RN) Outcome: Pain will be Controlled During Procedures (Chela Liriano RN) Status: Ongoing (Chela Liriano RN) Anxiety State: Risk For (Chela Liriano RN) Related To: Labor and Delivery Process; Surgical Procedure (Chela Liriano RN) Goal(s): Patient will have Decreased Anxiety and be able to Function at Acceptable Levels (Chela Liriano RN) Interventions: Assess Verbal and Nonverbal Behavioral Indicators of Anxiety; Assist Patient to Identify and Verbalize Symptoms of Anxiety; Identify and Demonstrate Techniques to Control Anxiety; Assist Patient with Coping Mechanisms to Manage Anxiety; Provide Theraputic Touch for the Patient; Explain to Patient, Using a Calm Reassuring Approach and Nonmedical Terms, All Activities, Procedures, and Concerns; Instruct Patient and Family about Post Discharge Care, Limitations, Symptoms to Report and Resources Available (Chela Liriano RN) Outcome: Patient will Identify, Verbalize and Demonstrate Techniques to Control Anxiety (Chela Liriano RN) Status: Ongoing (Chela Liriano RN) Outcome: Patient's Posture, Facial Expressions, Gestures and Activity Level will Reflect Decreased Anxiety (Chela Liriano RN) Status: Ongoing (Chela Liriano RN) Outcome: Patient will Verbalize a Sense of Control and/or Acceptance of the Situation (Chela Liriano RN) Status: Ongoing (Chela Liriano RN) Outcome: Patient will Identify and Utilize Support Person (Chela Liriano RN) Status: Ongoing (Chela Liriano RN) Knowledge Deficit State: Risk For (Chela Liriano RN) Related To: Labor and Delivery Process; Surgical Procedures (Chela Liriano RN) Goal(s): Patient will Accurately Verbalize Understanding of Plan of Care and Treatment; Patient and Family will Accurately Verbalize Understanding of the Disease Process (Chela Liriano RN) Interventions: Assess Motivation and Willingness of Patient/Family to Learn; Assess Preferred Learning Mode: One to One Instruction, Reading, Videos, Group Discussion or Demonstration; Assess Barriers to Learning: Pain, Emotional State, Language Barrier, Cognitive Impairment, Visual or Hearing Deficits; Assess Patient and Family Knowledge of Disease Process, Medications and Treatment; Discuss Therapy and/or Treatment Options, Describe Rationale Behind Management, Therapy and Treatment Recommendations; Instruct Patient and Family on Signs and Symptoms to Report; Instruct Patient and Family on Medication Effects and Side Effects; Provide Appropriate and Timely Education Using Multiple Techniques; Provide Patient and Family with Support Group Information and Resources; Give Clear and Thorough Explanations and Demonstrations (Chela Liriano RN) Outcome: Patient and Family will Verbalize Understanding of Condition, Treatment and Signs and Symptoms to Report (Chela Liriano RN) Status: Ongoing (Chela Liriano RN) Outcome: Patient will Identify Perceived Learning Needs and Express Motivation to Learn (Chela Field, RN) Status: Ongoing (Chela Liriano RN) Outcome: Patient will Verbalize Understanding of Desired Content, and/or Performs Desired Skill Prior to Discharge (Chela Liriano RN) Status: Ongoing (Chela Liriano RN) Infection State: Risk For (Chela Liriano RN) Related To: Surgical Procedures (Chela Liriano RN) Goal(s): The Patient will be Free of Infection, Vital Signs Stable and Lab Work within Normal Parameters (Chela Liriano RN) Interventions: Instruct and Reinforce Proper Handwashing, Hygiene, and Care Techniques to Patient and Family; Monitor Vital Signs; Monitor Patient for the Following Signs of Infection: Fever, Abdominal Tenderness, Unusual Discharge; Monitor Aminiotic Fluid, Urine and Lochia for Color and Odor; Observe Wounds, Incisions and Invasive Line Sites for Redness, Drainage and Edema; Assess IV Sites per Hospital Policy; Monitor Lab and Test Results and Notify Provider of Abnormal Findings; Assess Nutritional Status and Promote Good Nutrition (Chela Liriano RN) Outcome: Patient will Remain Free of Infection (Chela Liriano RN) Status: Ongoing (Chela Liriano RN) Outcome: Infection will be Recognized Early to Allow for Prompt Treatment (Chela Liriano RN) Status: Ongoing (Chela Liriano RN) Outcome: Patient will have Vital Signs Within Expected Range (Chela Liriano RN) Status: Ongoing (Chela Liriano RN) Fluid Volume State: Risk For (Chela Liriano RN) Related To: Gestational Hypertension; Surgical Procedures (Chela Liriano, RN) Goal(s): Patient will Achieve and Maintain a Balanced Fluid Volume Status; Hemodynamically Stable (Chela Liriano RN) Interventions: Monitor Vital Signs; Auscultate Breath Sounds; Monitor Patient for Skin Turgor, Mucous Membranes, Dry Skin, Weakness, Headaches and Confusion; Provide Oral Fluids as Ordered; Initiate and Maintain Intravenous Fluids as Ordered; Monitor Intake and Output as Indicated Per Patient Status; Accurately Measure Blood Loss; Monitor Lab and Test Results as Obtained and Notify Provider of Abnormal Findings; Monitor Patient's Weight (Chela Liriano, RN) Outcome: Patient will have Clear Lung Sounds (Chela Liriano, RN) Status: Ongoing (Chela Liriano RN) Outcome: Patient will have Vital Signs within Expected Range (Chela Liriano, RN) Status: Ongoing (Chela Liriano RN) Outcome: Urine Output will be within Expected Range (Chela Liriano, RN) Status: Ongoing (Chela Liriano RN) Outcome: Patient will have Minimal Generalized or Upper Extremity Edema (Chela Liriano, RN) Status: Ongoing (Chela Liriano RN) Injury State: Risk For (Chela Liriano RN) Related To: Labor and Delivery Process (Chela Liriano RN) Goal(s): Patient will Remain Free from Injury (Chela Field, RN) Interventions: Monitoring as per Hospital Protocol; Assess Neurological Status; Perform Risk Assessment of Patients with Induction and ; Perform Fall Risk Assessment and Prevention per Hospital Protocol; Perform DVT Risk Assessment and Prophylaxis per Hospital Protocol; Ensure that Oxygen, Suction, and Resuscitation Medications and Equipment are Readily Available; Confirm Patient ID Prior to Procedure(s) and Medication Administration per Hospital Policy (Chela Liriano RN) Outcome: Successful Fall Risk Prevention (Chela Liriano RN) Status: Ongoing (Chela Liriano RN) Outcome: Patient will Deliver Infant without Adverse [place] (Chela Liriano RN) Status: Ongoing (Chela Liriano RN) Outcome: Patient's Neurological Status will Remain Stable (Chela Liriano, RN) Status: Ongoing (Chela Liriano RN) Impaired Skin Integrity State: Risk For (Chela Liriano RN) Related To: Vaginal Delivery (Chela Liriano RN) Goal(s): Patient will Maintain Optimal Skin Integrity, Free of Breakdown, Injury or Infection (Chela Liriano RN) Interventions: Complete Screening for Pressure Ulcer Risk and Initiate Protocol per Hospital Policy; Monitor Site of Skin Impairment for Color Changes, Redness, Swelling, Warmth, Pain or Other Signs of Infection; Encourage and Assist with Position Changes; Monitor Patient's Mobility Status; Provide Adequate Nutrition and Fluids; Teach Patient Appropriate Hygienic Care; Teach Patient/Family Skin Care Management (Chela Liriano RN) Outcome: Patient will not have Evidence of Injury Such as Skin Breakdown, Scrapes, Cuts, or Bruising (Chela Liriano RN) Status: Ongoing (Chela Liriano RN) Outcome: Patient will Report Any Altered Sensation or Pain at Site of Skin Impairment (Chela Liriano RN) Status: Ongoing (Chela Field, RN) Outcome: Patients Incisions and Wounds will be without Signs or Symptoms of Infection (Chela Liriano, RN) Status: Ongoing (Chela Liriano, RN) Outcome: Patient will Demonstrate Understanding of Plan to Heal Skin and Prevent Reinjury and Verbalize Risk Factors (Chela Liriano, RN) Status: Ongoing (Chela , RN) Parenting Impaired State: Not Applicable (Chela Liriano, RN) Nutrition State: Not Applicable (Chela Liriano, RN) Grieving State: Not Applicable (Chela Field, RN) Additional Care Plan State: Not Applicable (Chela Field, RN)
[2016-08-07 07:41] LABS: HEPATITIS C VIRUS AB <0.1 s/co ratio (0.0-0.9)
[2016-08-07 07:43] LABS: HEMOGLOBIN 9.7 g/dL (12.0-15.5); HGB HCT DIFFERENCE 1.1; MEAN CORPUSCULAR HEMOGLOBIN 33.1 pg (27.0-33.4); MEAN CORPUSCULAR HGB CONC 34.7 g/dL (32.0-36.0); MEAN CORPUSCULAR VOLUME 96 fl (80-97); RED BLOOD COUNT 2.92 10^6/uL (3.72-5.28); RED CELL DISTRIBUTION WIDTH 12.4 % (11.5-14.0); WHITE BLOOD COUNT 12.8 10^3/uL (4.0-10.5)
[2016-08-07] MEDS: PRENATAL VITAMIN W-O CA NO5/FE FUMARATE/FA CAPSULE PO SCH (09:22)
[2016-08-07] MEDS: DOCUSATE SODIUM 100 MG CAPSULE PO SCH ×2 (09:22→17:18)
[2016-08-07] MEDS: FERROUS SULFATE 325 MG TABLET PO SCH ×3 (09:43→17:18)
[2016-08-07] MEDS: ASCORBIC ACID 500 MG TABLET PO SCH ×2 (09:43→17:18)
--- NOTE | 2016-08-07 10:12 | PDOC PROGRESS REPORT ---
Subjective-OB Subjective: Post Delivery Day: 31 year old. Denies any needs at this time. Pt doing well, no complaints. She reports light bleeding, regular diet and voiding well. She had BM yesterday , is ambulatory and has adequate pain control. Physical Exam (OB) Vital Signs: Temp Pulse Resp BP Pulse Ox 97.8 F 83 16 134/92 H 100 08/07/16 08:45 08/07/16 08:45 08/07/16 08:45 08/07/16 08:45 08/07/16 08:45 Intake & Output 08/06/16 08/07/16 08/08/16 06:59 06:59 06:59 Output Total 1600 Balance -1600 Weight 115.25 kg - PIH/Pre-Eclampsia Headache: Absent Epigastric Pain: No Visual Changes: No - Dressing Removed: Yes Incision: Dressing - Lochia Lochia Amount: Scant < 10 ml Lochia Color: Rubra/Red - Abdomen Description: Tender, Soft, Round Hernia Present: No Fundal Description: Firm, Midline Fundal Height: u/u - u/2 Objective-Diagnostic Laboratory: 08/07/16 07:08 08/06/16 19:20 08/06/16 08/06/16 08/07/16 19:20 19:20 07:08 WBC 14.4 H 12.8 H RBC 3.12 L 2.92 L Hgb 10.5 L 9.7 L Hct 29.9 L 28.0 L MCV 96 96 MCH 33.7 H 33.1 MCHC 35.2 34.7 RDW 12.5 12.4 Plt Count 165 156 Seg Neutrophils % 80.3 H Lymphocytes % 12.0 L Monocytes % 6.7 Eosinophils % 0.8 Basophils % 0.2 Absolute Neutrophils 11.5 H Absolute Lymphocytes 1.7 Absolute Monocytes 1.0 Absolute Eosinophils 0.1 Absolute Basophils 0.0 Sodium 132.7 L Potassium 4.0 Chloride 102 Carbon Dioxide 23 Anion Gap 8 BUN 5 L Creatinine 0.51 L Est GFR ( Amer) > 60 Est GFR (Non-Af Amer) > 60 Glucose 90 Uric Acid 4.6 Calcium 8.5 Total Bilirubin 0.4 AST 35 ALT 50 Alkaline Phosphatase 76 Total Protein 5.4 L Albumin 2.9 L Assessment and Plan(PN) - Assessment and Plan (1) delivery indicated due to breech presentation Is this a current diagnosis for this admission?: Yes (2) Placental abruption in third trimester Is this a current diagnosis for this admission?: Yes (3) Anemia due to acute blood loss Is this a current diagnosis for this admission?: Yes - Time Spent with Patient Time with patient: Less than 15 minutes Medications reviewed and adjusted accordingly: Yes - Disposition Anticipated Discharge: Home Within: within 48 hours
[2016-08-07] MEDS: IBUPROFEN 800 MG TABLET PO SCH ×3 (11:10→23:07)
[2016-08-08] MEDS: IBUPROFEN 800 MG TABLET PO SCH ×3 (05:03→17:33)
[2016-08-08 09:02] VITALS: BP 142/92
--- NOTE | 2016-08-08 09:23 | PDOC PROGRESS REPORT ---
Subjective-OB Subjective: Post Delivery Day: 31 year old. Denies any needs at this time. Ready to go home. Has not yet heard from CPS re custody of this baby. Physical Exam (OB) Vital Signs: Temp Pulse Resp BP Pulse Ox 98.1 F 83 16 142/92 H 100 08/08/16 08:17 08/08/16 08:53 08/08/16 08:17 08/08/16 08:53 08/08/16 08:53 Intake & Output 08/07/16 08/08/16 08/09/16 06:59 06:59 06:59 Output Total 1600 Balance -1600 - PIH/Pre-Eclampsia Clonus: Negative Headache: Absent Epigastric Pain: No Visual Changes: No - Dressing Removed: No Incision: Dressing Closure Type: Froid - Lochia Lochia Amount: Scant < 10 ml Lochia Color: Rubra/Red - Abdomen Description: Soft, Round Hernia Present: No Bowel Sounds: Normoactive Flatus Presence: Present Stool: Yes Fundal Description: Firm Fundal Height: u/u - u/2 Objective-Diagnostic Laboratory: 08/07/16 07:08 08/06/16 19:20 Assessment and Plan(PN) - Time Spent with Patient Medications reviewed and adjusted accordingly: Yes - Disposition Anticipated Discharge: Home
--- NOTE | 2016-08-08 09:33 | PDOC DISCHARGE SUMMARY ---
Final Diagnosis Discharge Date: 08/08/16 - Final Diagnosis (1) delivery indicated due to breech presentation Is this a current diagnosis for this admission?: Yes (2) No care in current Is this a current diagnosis for this admission?: Yes (3) Placental abruption in third trimester Is this a current diagnosis for this admission?: Yes (4) Psychosocial issues Is this a current diagnosis for this admission?: Yes Discharge Data - Discharge Medication Home Medications: Pnv W-O Ca No5/Fe Fumarate/FA [-U Multiple Vitamin Capsule] 1 cap PO DAILY 04/06/13 Ibuprofen [Motrin 800 mg Tablet] 800 mg PO Q8 #60 tablet 06/23/15 Ferrous Sulfate [Feosol 325 mg Tablet] 325 mg PO BID #60 tablet 08/08/16 Ibuprofen [Motrin 800 mg Tablet] 800 mg PO Q6 #30 tablet 08/08/16 Oxycodone HCl/Acetaminophen [Percocet 5-325 mg Tablet] 1 tab PO Q4HP PRN #20 tablet 08/08/16 Gestational Age: 40.0 wks Reason(s) for Admission: Obstetric Complications Intrapartum Procedure(s): : Low Cervical, Transverse - [place] Data Baby 1 Female at 1 minute: 2 at 5 minutes: 5 at 10 minutes: 7 Weight: 3.317 kg Home with Mother: No - CPS to make decision re custody of baby Complications: No - Diagnosis Test Laboratory: Temp Pulse Resp BP Pulse Ox 98.1 F 83 16 142/92 H 100 08/08/16 08:17 08/08/16 08:53 08/08/16 08:17 08/08/16 08:53 08/08/16 08:53 08/06/16 08/06/16 08/06/16 04:10 04:27 19:20 RBC 3.59 L 3.12 L Hgb 12.0 10.5 L Hct 34.5 L 29.9 L Urine Opiates Screen NEGATIVE 08/07/16 07:08 RBC 2.92 L Hgb 9.7 L Hct 28.0 L Urine Opiates Screen - Discharge information/Instructions Discharge Activity: Activity As Tolerated, Balance Activity w/Rest, No Driving, No Lifting Over 10 Pounds, No Lifting/Push/Pulling, Pelvic Rest, Slowly Increase Activity, No tub bath Discharge Diet: Regular Disposition: HOME, SELF-CARE Follow up with: [facility] in: 1, Weeks
[2016-08-08] MEDS: DOCUSATE SODIUM 100 MG CAPSULE PO SCH ×2 (10:54→17:33)
[2016-08-08] MEDS: PRENATAL VITAMIN W-O CA NO5/FE FUMARATE/FA CAPSULE PO SCH (10:54)
[2016-08-08] MEDS: ASCORBIC ACID 500 MG TABLET PO SCH ×2 (10:54→17:33)
[2016-08-08] MEDS: FERROUS SULFATE 325 MG TABLET PO SCH ×2 (10:54→17:33)
--- NOTE | 2016-08-22 13:41 | Operative Report ---
Operative Report DATE OF SURGERY: 08/06/16 PREOPERATIVE DIAGNOSIS: Breech Presentation in term labor. suspected abruption. undesired future fertility POSTOPERATIVE DIAGNOSIS: same, delivered OPERATION: Primary Low Transverse Section. Bilateral Tubal Ligation by Filshie Clip Application SURGEON: FAUSTINA RUIZ ANESTHESIA: Spinal TISSUE REMOVED OR ALTERED: placenta COMPLICATIONS: none ESTIMATED BLOOD LOSS: 600cc INTRAOPERATIVE FINDINGS: viable male ap. complete breech presentation. approx 25% placental abruption PROCEDURE: After appropriate consents had been obtained, the patient was taken to the operating room where regional anesthesia was placed without difficulty. The patient was prepped and draped in the normal sterile fashion in the dorsal supine position with a leftward tilt. Time out procedure was performed. Anesthesia was determined to be adequate and a pfannenstiel incision was made through the prior scar. The fascia was nicked in the midline then extended bilaterally with Neumann scissors. The fascia was elevated and then the rectus muscles dissected off sharply. The rectus muscles were then in the midline and the peritonuem identified. The peritoneum was entered sharply and extended with good visualization of the bladder. Bladder blade was inserted and the bladder flap carefully dissected off the lower uterine segment. A transverse incision was made with the scalpel then extended bilaterally in an upward outward motion across the lower uterine segment. Amniotomy revealed tea colored fluid. Large clots were found upon entering uterus. The breech was grasped and elevated easily through the incision followed by the remainder of the . The cord was doubly clamped and ligated. The was handed off the operative field to the waiting pediatric team. The placenta was then extracted manually intact. The uterus was exteriorized and cleansed of membranous tissue with a sponge on the tailing machine operator's hand. The uterine incision was then repaired using 0 vicryl in a running locked fashion. A second layer of the same suture was used to imbricate for hemastasis. Attention was then returned to the fallopian tubes. The right fallopian tube was identified and clamped across the midportion with filshie clip. This procedure was repeated on opposite fallopian tube. The uterus was then returned to the abdomen and gutters were cleared of clots and debris. The fascial incision was closed with 0 vicryl in a running fashion to the midline. The subcutaneous layer was closed with 0 plain in a running stitch. the skin was closed with 4-0 monocryl in subcuticular running stitch. Sponge, lap and needle counts were correct. The patient was transferred to recovery in stable condition.
== END 2016-08-08 17:36 | disposition home or self-care (01) | DRG 765 ==
LOC: LC 03:50 → LR 04:55 → 2S 09:18
PROVIDERS: ADMIT Obstetrics & Gynecology; ATTEND Obstetrics & Gynecology
PROC: 10D00Z1 Extraction of Products of Conception, Low, Open Approach (ICD-10-PCS; principal; 2016-08-06)
PROC: 0UL70CZ Occlusion of Bilateral Fallopian Tubes with Extraluminal Device, Open Approach (ICD-10-PCS; 2016-08-06)
PROC: 4A1HXCZ Monitoring of Products of Conception, Cardiac Rate, External Approach (ICD-10-PCS; 2016-08-06)
DX: O64.1XX0 Obstructed labor due to breech presentation, not applicable or unspecified (principal); O45.93 Premature separation of placenta, unspecified, third trimester; D62 Acute posthemorrhagic anemia; O99.02 Anemia complicating childbirth; O99.334 Smoking (tobacco) complicating childbirth; F17.210 Nicotine dependence, cigarettes, uncomplicated; Z28.21 Immunization not carried out because of patient refusal; Z30.2 Encounter for sterilization; Z3A.40 40 weeks gestation of pregnancy; Z37.0 Single live birth
CPT/HCPCS: 1961; 36415; 76815; 80053; 80307; 81005; 82803; 82962; 83615; 84550; 85025; 85027; 85362; 85384; 85610; 85730; 86592; 86701; 86762; 86803; 86804; 86850; 86900; 86901; 87340; 87491; 87591; 88307; 94799; J0131; J0690; J1170; J1200; J1885; J2250; J2370; J2405; J2540; J2590; J2704; J3010; J3490